=== PATIENT | male | born 1995 | race Caucasian/White ===

== ENCOUNTER 2017-03-01 17:15 | Emergency (ER) | payer SELFPAY ==
[~2017-03-01] VITALS: Ht 175.3 cm; Wt 75.3 kg
[2017-03-01 17:20] VITALS: Ht 175.3 cm; Wt 75.3 kg
== END 2017-03-01 20:44 | disposition left against medical advice (07) ==
LOC: E/R 17:15
DX: Z53.21 Procedure and treatment not carried out due to patient leaving prior to being seen by health care provider (principal)